=== PATIENT | female | born 1990 | race Caucasian/White ===

== ENCOUNTER 2018-11-19 16:59 | Emergency (ER) | payer MEDICAID ==
[~2018-11-19] VITALS: Ht 157.5 cm; Wt 62.3 kg
[2018-11-19 17:11] VITALS: Ht 157.5 cm; Wt 62.3 kg
[2018-11-19] MEDS ORDERED: ONDANSETRON 4 MG INJ IV STA (19:11)
[2018-11-19] MEDS ORDERED: IBUP-1542 PO (20:47)
[2018-11-19] MEDS ORDERED: DOCU-144 PO (20:47)
--- NOTE | 2018-11-19 20:48 | ERD ---
ER Documentation Chief Complaint Chief Complaint Complains of abdominal pain x 3 days HPI 28-year-old female presents with lower abdominal pain for last 3 days. She may have nausea and tactile fevers but no measured fever no vomiting. She denies . She denies urinary complaints. She may have constipation. ROS All systems reviewed and are negative except as per history of present illness. Medications Home Meds Active Scripts Docusate Sodium* (Colace*) 100 Mg Capsule, 100 MG PO BID for 14 Days, #30 CAP Prov:MAGALIS OVIEDO MD 11/19/18 Ibuprofen* (Motrin*) 600 Mg Tab, 600 MG PO Q6, #20 TAB Prov:MAGALIS OVIEDO MD 11/19/18 Allergies Allergies: Coded Allergies: No Known Allergy (Unverified , 11/19/18) PMhx/Soc Medical and Surgical Hx: pt denies Medical Hx, pt denies Surgical Hx Hx Alcohol Use: No Hx Substance Use: No Hx Tobacco Use: No Smoking Status: Never smoker FmHx Family History: No diabetes, No coronary disease, No other Physical Exam Vitals Vital Signs Date Temp Pulse Resp B/P (MAP) Pulse Ox O2 O2 Flow FiO2 Time Delivery Rate 11/19/18 97.9 86 20 140/72 100 17:11 (94) Physical Exam Const: No acute distress Head: Atraumatic Eyes: Normal Conjunctiva ENT: Normal External Ears, Nose and Mouth. Neck: Full range of motion. No meningismus. Resp: Clear to auscultation bilaterally Cardio: Regular rate and rhythm, no murmurs Abd: Soft, mild tenderness in the lower abdominal area right equal to left. No exquisite tenderness McBurney's point no Muñiz sign and no rebound or masses. Non distended. Normal bowel sounds Skin: No petechiae or rashes Back: No midline or flank tenderness Ext: No cyanosis, or edema Neur: Awake and alert Psych: Normal Mood and Affect Result Diagram: 11/19/18195111/19/181952 Results 24 hrs Laboratory Tests Test 11/19/18 19:50 11/19/18 19:52 11/19/18 19:53 POC Beta HCG, Qualitative NEGATIVE White Blood Count 9.9 10^3/ul Red Blood Count 4.65 10^6/ul Hemoglobin 15.2 g/dl Hematocrit 46.0 % Mean Corpuscular Volume 98.9 fl Mean Corpuscular Hemoglobin 32.7 pg Mean Corpuscular 33.0 g/dl Hemoglobin Concent Red Cell Distribution Width 12.6 % Platelet Count 436 10^3/UL Mean Platelet Volume 8.6 fl Immature Granulocytes % 0.600 % Neutrophils % 60.3 % Lymphocytes % 27.4 % Monocytes % 6.5 % Eosinophils % 4.5 % Basophils % 0.7 % Nucleated Red Blood Cells % 0.0 /100WBC Immature Granulocytes # 0.060 10^3/ul Neutrophils # 6.0 10^3/ul Lymphocytes # 2.7 10^3/ul Monocytes # 0.6 10^3/ul Eosinophils # 0.4 10^3/ul Basophils # 0.1 10^3/ul Nucleated Red Blood Cells # 0.0 10^3/ul Urine Color YELLOW Urine Clarity TURBID Urine pH 7.0 Urine Specific [place] 1.015 Urine Ketones NEGATIVE mg/dL Urine Nitrite NEGATIVE mg/dL Urine Bilirubin NEGATIVE mg/dL Urine Urobilinogen NEGATIVE mg/dL Urine Leukocyte Esterase NEGATIVE [place]/ul Urine Microscopic RBC 0 /HPF Urine Microscopic WBC 0 /HPF Urine Squamous Epithelial Cells FEW /HPF Urine Amorphous Crystals FEW /HPF Urine Hemoglobin NEGATIVE mg/dL Urine Glucose NEGATIVE mg/dL Urine Total Protein NEGATIVE mg/dl Sodium Level 141 mmol/L Potassium Level 3.9 mmol/L Chloride Level 100 mmol/L Carbon Dioxide Level 30 mmol/L Anion Gap 11 Blood Urea Nitrogen 9 mg/dl Creatinine 0.56 mg/dl Est Glomerular Filtrat > 60 mL/min Rate mL/min Glucose Level 92 mg/dl Calcium Level 9.6 mg/dl Total Bilirubin 0.6 mg/dl Direct Bilirubin 0.00 mg/dl Indirect Bilirubin 0.6 mg/dl Aspartate Amino Transf (AST/SGOT) 84 IU/L Alanine 101 IU/L Aminotransferase (ALT/SGPT) Alkaline Phosphatase 79 IU/L Total Protein 8.1 g/dl Albumin 4.4 g/dl Globulin 3.70 g/dl Albumin/Globulin Ratio 1.18 Lipase 156 U/L Current Medications Medications Dose Sig/Gabriel Start Time Status Last (Trade) Ordered Route PRN Stop Time Admin Dose Reason Admin Ondansetron 4 mg ONCE STAT 11/19/18 DC 11/19/18 HCl (Zofran IV 19:11 19:56 Inj) 11/19/18 19:13 Procedures/MDM Patient was given Zofran, CBC and CMP normal. Urine shows no acute abnormalities. HCG is negative. Patient had a benign reassuring abdominal exam on serial exam. Patient presents with lower abdominal pain for last 3 days of uncertain etiology. She is well-appearing and has minimal tenderness. Current signs or symptoms do not suggest surgical abdomen, appendicitis, obstruction, concerning symptoms. Will treat with Colace, ibuprofen, close follow-up and return precautions for fevers, vomiting, localized abdominal pain, new or worsening symptoms. She will should otherwise see primary doctor this week. Urine was sent for gonorrhea and chlamydia. Departure Diagnosis: Primary Impression: Abdominal pain Abdominal location: lower abdomen, unspecified Qualified Codes: R10.30 - Lower abdominal pain, unspecified Condition: Stable Patient Instructions: Abdominal Pain Referrals: NO PRIMARY,CARE PHYSICIAN (PCP) Additional Instructions: Examines normal hoy. Cheque otro vez con vizcarra doctor primario en el proximo huynh or regresa para mas o nueva simptomas. Horita los examines dice no tiene appendicits o emferma mal, jose es importante coma esta en el proximo gustavo. chequ 8-12 horas par mas dolor, especialamente derecho y abajo vomito , fiebre, nueva simptomas. MAGALIS OVIEDO MD Nov 19, 2018 20:48
[2018-11-19 20:56] VITALS: BP 114/67; PULSE 68; RESP 18
== END 2018-11-19 20:57 | disposition home or self-care (01) ==
LOC: FTE 16:59
DX: R10.30 Lower abdominal pain, unspecified (principal); R11.0 Nausea
CPT/HCPCS: 36415; 80053; 81001; 81025; 83690; 85025; 87591; 96374; J2405; Z7502

== ENCOUNTER 2019-05-05 12:51 | Emergency (ER) | payer SELFPAY ==
[~2019-05-05] VITALS: Ht 157.5 cm; Wt 68.9 kg
[~2019-05-05 12:51] MED LIST: DOCU-144 PO; IBUP-1542 PO
[2019-05-05 12:54] VITALS: BP 126/58; PULSE 76; RESP 18; Ht 157.5 cm; Wt 68.9 kg
== END 2019-05-05 16:32 | disposition left against medical advice (07) ==
LOC: FTE 12:51
DX: Z53.21 Procedure and treatment not carried out due to patient leaving prior to being seen by health care provider (principal)